=== PATIENT | female | born 1975 | race Two or more races ===

== ENCOUNTER 2017-06-14 10:39 | Outpatient (CLI) | payer OTHER ==
[~2017-06-14 10:39] MED LIST: ASA81 MG; CELEXA10 MG; CLONAZEPAM0.5 MG; COZAAR100 MG; FLONASE16 GM NASAL; GILTUSS TR TAB1 EACH PO; LASIX20 MG; METFORMIN HCL500 MG; MINITRAN1 EAC1; SINGULAIR10 MG; TOPAMAX15 MG; TOPROL XL200 MG; VOLTAREN100 GM TP; XARELTO20 MG; ZITHROMAX500 MG PO
== END 2017-06-14 15:24 | disposition home or self-care (01) ==
LOC: SONOGRAMA 10:39
DX: N20.0 Calculus of kidney (principal); N28.1 Cyst of kidney, acquired

== ENCOUNTER 2017-06-14 10:43 | Outpatient (CLI) | payer OTHER | END 2017-06-14 15:24 | disposition home or self-care (01) | LOC: RAD 10:43 | DX: I25.10 Atherosclerotic heart disease of native coronary artery without angina pectoris (principal); I26.99 Other pulmonary embolism without acute cor pulmonale ==

== ENCOUNTER 2017-08-23 10:51 | Outpatient (CLI) | payer OTHER | END 2017-08-23 10:55 | disposition home or self-care (01) | LOC: MAMO-SONO 10:51 | DX: Z12.31 Encounter for screening mammogram for malignant neoplasm of breast (principal); Z87.898 Personal history of other specified conditions; Z12.39 Encounter for other screening for malignant neoplasm of breast; R10.2 Pelvic and perineal pain ==

== ENCOUNTER 2017-10-17 11:35 | Outpatient (CLI) | payer OTHER | END 2017-10-17 16:13 | disposition home or self-care (01) | LOC: TOM 11:35 | DX: J84.112 Idiopathic pulmonary fibrosis (principal) ==

== ENCOUNTER 2018-08-16 09:17 | Outpatient (CLI) | payer OTHER | END 2018-08-16 12:49 | disposition home or self-care (01) | LOC: RX STUDY 09:17 | DX: R13.19 Other dysphagia (principal); R93.3 Abnormal findings on diagnostic imaging of other parts of digestive tract ==

== ENCOUNTER 2018-11-14 10:28 | Outpatient (CLI) | payer OTHER | END 2018-11-14 15:00 | disposition home or self-care (01) | LOC: SONOGRAMA 10:28 → RAD 10:28 → SONOGRAMA 15:00 | DX: K57.00 Diverticulitis of small intestine with perforation and abscess without bleeding (principal) ==

== ENCOUNTER 2019-02-19 09:36 | Outpatient (CLI) | payer OTHER | END 2019-02-19 09:38 | disposition home or self-care (01) | LOC: TOM 09:36 | DX: K40.90 Unilateral inguinal hernia, without obstruction or gangrene, not specified as recurrent (principal) ==

== ENCOUNTER 2019-03-28 10:30 | Outpatient (CLI) | payer OTHER | END 2019-03-28 10:37 | disposition home or self-care (01) | LOC: RAD 10:30 | DX: M25.562 Pain in left knee (principal); M25.561 Pain in right knee ==

== ENCOUNTER 2019-07-11 13:05 | Outpatient (CLI) | payer OTHER | END 2019-07-11 13:07 | disposition home or self-care (01) | LOC: SONOGRAMA 13:05 | DX: M25.551 Pain in right hip (principal) ==

== ENCOUNTER 2019-10-04 10:02 | Outpatient (CLI) | payer OTHER | END 2019-10-04 10:09 | disposition home or self-care (01) | LOC: RAD 10:02 | DX: J40 Bronchitis, not specified as acute or chronic (principal); I50.22 Chronic systolic (congestive) heart failure ==

== ENCOUNTER 2020-03-19 09:13 | Outpatient (CLI) | payer OTHER | END 2020-03-19 09:20 | disposition home or self-care (01) | LOC: SONOGRAMA 09:13 | PROVIDERS: ATTEND Physical Medicine & Rehabilitation | DX: M25.512 Pain in left shoulder (principal) ==

== ENCOUNTER → 2020-04-18 | Outpatient (CLI) | payer OTHER ==
[~2020-04-18] MED LIST changes: +ALDACTONE25 MG PO; +AMITIZA8 MCG PO; +AMITRIPTYLINE H10 MG PO; +ATACAND32 MG PO; +DICY20TA PO; +ISOSORBIDE MONO30 MG; +LIPITOR40 M1 PO; +SYNTHROID50 MCG PO; +XARELTO20 MG PO
== END | disposition home or self-care (01) ==
LOC: RAD 10:34
PROVIDERS: ATTEND Orthopaedic Surgery
DX: Z76.89 Persons encountering health services in other specified circumstances (principal)

== ENCOUNTER → 2020-05-14 11:49 | Outpatient (CLI) | payer OTHER ==
[~2020-05-14 11:49] MED LIST changes: +ACETAMINOPHEN-1 EAC2 PO
== END | disposition home or self-care (01) ==
LOC: LAB 11:49
PROVIDERS: ATTEND Orthopaedic Surgery
DX: Z03.818 Encounter for observation for suspected exposure to other biological agents ruled out (principal)

== ENCOUNTER 2020-05-16 08:38 | Day surgery (SDC) | payer OTHER ==
[~2020-05-16 08:38] MED LIST changes: -ACETAMINOPHEN-1 EAC2 PO
[2020-05-21] MEDS ORDERED: ACETAMINOPHEN-1 EAC2 PO (10:26)
== END 2020-05-16 16:00 | disposition home or self-care (01) ==
LOC: CIR.AMB 08:38
PROVIDERS: ATTEND Orthopaedic Surgery
DX: M75.122 Complete rotator cuff tear or rupture of left shoulder, not specified as traumatic (principal); M75.22 Bicipital tendinitis, left shoulder; Z20.828 Contact with and (suspected) exposure to other viral communicable diseases

== ENCOUNTER 2020-05-16 09:01 | Outpatient (CLI) | payer OTHER ==
[2020-05-21] MEDS ORDERED: ACETAMINOPHEN-1 EAC2 PO (10:26)
[2020-06-16] MEDS ORDERED: NEURONTIN300 MG PO (10:44)
== END 2020-05-16 09:20 | disposition home or self-care (01) ==
LOC: NUCLEAR 09:01
PROVIDERS: ATTEND Orthopaedic Surgery
DX: M81.0 Age-related osteoporosis without current pathological fracture (principal)

== ENCOUNTER 2020-07-28 11:46 | Outpatient (CLI) | payer OTHER ==
[~2020-07-28 11:46] MED LIST changes: +ACETAMINOPHEN-1 EAC2 PO; +NEURONTIN300 MG PO
== END 2020-07-28 11:53 | disposition home or self-care (01) ==
LOC: RAD 11:46
PROVIDERS: ATTEND Orthopaedic Surgery
DX: M20.11 Hallux valgus (acquired), right foot (principal); M79.671 Pain in right foot

== ENCOUNTER 2020-07-31 09:23 | Outpatient (CLI) | payer OTHER | END 2020-07-31 09:32 | disposition home or self-care (01) | LOC: LAB 09:23 | PROVIDERS: ATTEND Orthopaedic Surgery | DX: E83.42 Hypomagnesemia (principal); E56.1 Deficiency of vitamin K; M85.89 Other specified disorders of bone density and structure, multiple sites ==

== ENCOUNTER 2020-11-25 11:43 | Outpatient (CLI) | payer OTHER | END 2020-11-25 11:48 | disposition home or self-care (01) | LOC: RAD 11:43 | PROVIDERS: ATTEND Orthopaedic Surgery | DX: M25.551 Pain in right hip (principal) ==

== ENCOUNTER 2021-01-28 11:43 | Outpatient (CLI) | payer OTHER | END 2021-01-28 11:48 | disposition home or self-care (01) | LOC: SONOGRAMA 11:43 | DX: K40.90 Unilateral inguinal hernia, without obstruction or gangrene, not specified as recurrent (principal) ==

== ENCOUNTER 2021-02-10 11:08 | Outpatient (CLI) | payer OTHER | END 2021-02-10 11:16 | disposition home or self-care (01) | LOC: RAD 11:08 | PROVIDERS: ATTEND Orthopaedic Surgery | DX: M25.562 Pain in left knee (principal); M79.671 Pain in right foot ==

== ENCOUNTER 2021-06-11 10:34 | Outpatient (CLI) | payer OTHER | END 2021-06-11 10:40 | disposition home or self-care (01) | LOC: SONOGRAMA 10:34 | PROVIDERS: ATTEND Internal Medicine Endocrinology, Diabetes & Metabolism | DX: E04.2 Nontoxic multinodular goiter (principal); E04.8 Other specified nontoxic goiter ==

== ENCOUNTER 2021-10-08 11:22 | Outpatient (CLI) | payer OTHER | END 2021-10-08 11:29 | disposition home or self-care (01) | LOC: RAD 11:22 | PROVIDERS: ATTEND Orthopaedic Surgery | DX: M79.671 Pain in right foot (principal) ==

== ENCOUNTER 2021-10-20 12:03 | Outpatient (CLI) | payer OTHER | END 2021-10-20 12:04 | disposition home or self-care (01) | LOC: RAD 12:03 | PROVIDERS: ATTEND Internal Medicine | DX: R05.9 Cough, unspecified (principal) ==

== ENCOUNTER 2021-12-10 10:57 | Outpatient (CLI) | payer OTHER | END 2021-12-10 11:20 | disposition home or self-care (01) | LOC: RAD 10:57 | PROVIDERS: ATTEND Student in an Organized Health Care Education/Training Program | DX: M25.561 Pain in right knee (principal) ==

== ENCOUNTER 2022-02-26 08:44 | Outpatient (CLI) | payer OTHER | END 2022-02-26 08:51 | disposition home or self-care (01) | LOC: TOM 08:44 | PROVIDERS: ATTEND Internal Medicine Gastroenterology | DX: K40.90 Unilateral inguinal hernia, without obstruction or gangrene, not specified as recurrent (principal) | CPT/HCPCS: 74177; Q9965 ==

== ENCOUNTER → 2022-05-11 | Emergency (ER) | payer OTHER ==
[~2022-05-11] VITALS: Ht 152.4 cm; Wt 103.4 kg
[~2022-05-11] MED LIST changes: +FLONASE ALLERG9.9 ML NASAL; +MUCINEX DM ER1 EAC1 PO
== END | disposition home or self-care (01) ==
LOC: ER 18:24
DX: U07.1 COVID-19 (principal); E11.9 Type 2 diabetes mellitus without complications; Z95.0 Presence of cardiac pacemaker

== ENCOUNTER 2022-06-15 11:00 | Outpatient (CLI) | payer OTHER | END 2022-06-15 11:06 | disposition home or self-care (01) | LOC: RAD 11:00 | DX: M79.671 Pain in right foot (principal) ==

== ENCOUNTER 2022-06-22 10:43 | Outpatient (CLI) | payer OTHER | END 2022-06-22 10:50 | disposition home or self-care (01) | LOC: RAD 10:43 | PROVIDERS: ATTEND Orthopaedic Surgery | DX: M79.672 Pain in left foot (principal); M25.562 Pain in left knee ==

== ENCOUNTER → 2022-08-20 | Outpatient (CLI) | payer OTHER | END | disposition home or self-care (01) | LOC: RAD 11:07 | PROVIDERS: ATTEND Physical Medicine & Rehabilitation | DX: S99.821A Other specified injuries of right foot, initial encounter (principal); W19.XXXA Unspecified fall, initial encounter ==

== ENCOUNTER 2022-12-14 07:52 | Outpatient (CLI) | payer OTHER ==
[~2022-12-14 07:52] MED LIST changes: +METHOCARBAMOL750 MG PO; +VOLTAREN ARTHRI20 GM TOP
== END 2022-12-14 08:08 | disposition home or self-care (01) ==
LOC: RX STUDY 07:52
PROVIDERS: ATTEND Internal Medicine Cardiovascular Disease
DX: M34.81 Systemic sclerosis with lung involvement (principal); J45.40 Moderate persistent asthma, uncomplicated; M33.10 Other dermatomyositis, organ involvement unspecified

== ENCOUNTER 2023-06-23 09:31 | Outpatient (CLI) | payer OTHER | END 2023-06-23 09:38 | disposition home or self-care (01) | LOC: TOM 09:31 | DX: J84.9 Interstitial pulmonary disease, unspecified (principal); M33.90 Dermatopolymyositis, unspecified, organ involvement unspecified ==

== ENCOUNTER 2023-08-17 07:55 | Outpatient (CLI) | payer OTHER | END 2023-08-17 08:01 | disposition home or self-care (01) | LOC: RAD 07:55 | PROVIDERS: ATTEND Student in an Organized Health Care Education/Training Program | DX: J44.9 Chronic obstructive pulmonary disease, unspecified (principal); J01.20 Acute ethmoidal sinusitis, unspecified; Z88.1 Allergy status to other antibiotic agents ==

== ENCOUNTER 2024-02-21 09:22 | Outpatient (CLI) | payer OTHER | END 2024-02-21 09:51 | disposition home or self-care (01) | LOC: RAD 09:22 | PROVIDERS: ATTEND Physical Medicine & Rehabilitation | DX: M25.511 Pain in right shoulder (principal); M54.50 Low back pain, unspecified ==

== ENCOUNTER → 2024-02-29 09:30 | Outpatient (CLI) | payer OTHER | END | disposition home or self-care (01) | LOC: NUCLEAR 09:30 | PROVIDERS: ATTEND Student in an Organized Health Care Education/Training Program | DX: I87.2 Venous insufficiency (chronic) (peripheral) (principal) ==

== ENCOUNTER 2024-03-21 12:54 | Outpatient (CLI) | payer OTHER | END 2024-03-21 14:58 | disposition home or self-care (01) | LOC: MAMO-SONO 12:54 | PROVIDERS: ATTEND Surgery | DX: E04.8 Other specified nontoxic goiter (principal); N60.11 Diffuse cystic mastopathy of right breast; N60.12 Diffuse cystic mastopathy of left breast; Z12.31 Encounter for screening mammogram for malignant neoplasm of breast ==

== ENCOUNTER 2024-04-12 11:33 | Outpatient (CLI) | payer OTHER | END 2024-04-12 11:49 | disposition home or self-care (01) | LOC: SONOGRAMA 11:33 | PROVIDERS: ATTEND Orthopaedic Surgery | DX: R10.13 Epigastric pain (principal); M25.561 Pain in right knee; M54.50 Low back pain, unspecified ==

== ENCOUNTER 2024-04-18 11:49 | Outpatient (CLI) | payer OTHER | END 2024-04-18 11:50 | disposition home or self-care (01) | LOC: NUCLEAR 11:49 | PROVIDERS: ATTEND Orthopaedic Surgery | DX: M81.0 Age-related osteoporosis without current pathological fracture (principal) ==

== ENCOUNTER 2024-05-21 11:37 | Emergency (ER) | payer OTHER ==
[~2024-05-21] VITALS: Ht 175.3 cm; Wt 86.2 kg
[2024-05-21 15:42] LABS: HEMATOCRIT 44.1 % (36.0-45.00); HEMOGLOBIN 14.3 g/dL (12.0-15.00); MEAN CELL VOLUME 91.9 fL (80.00-100.00); MEAN CORPUSCULAR HEMOGLOBIN 29.8 pg (27.00-32.0); MEAN CORPUSCULAR HGB CONC 32.4 g/dl (32.0-36.0); PLATELET COUNT 233 K/uL (150-450); RED CELL DISTRIBUTION WIDTH 15.3 % (11.5-14.5)
[2024-05-21] MEDS ORDERED: GILTUSS COUGH-118 M1 PO (20:31)
== END 2024-05-21 20:44 | disposition home or self-care (01) ==
LOC: ER 11:39
PROVIDERS: General Practice
DX: R53.81 Other malaise (principal); J06.9 Acute upper respiratory infection, unspecified; Z20.822 Contact with and (suspected) exposure to COVID-19; Z88.1 Allergy status to other antibiotic agents

== ENCOUNTER → 2024-08-20 | Outpatient (CLI) | payer OTHER ==
[~2024-08-20] MED LIST changes: +GILTUSS COUGH-118 M1 PO
== END | disposition home or self-care (01) ==
LOC: SONOGRAMA 10:25
PROVIDERS: ATTEND Student in an Organized Health Care Education/Training Program
DX: M75.101 Unspecified rotator cuff tear or rupture of right shoulder, not specified as traumatic (principal)

== ENCOUNTER 2024-09-03 09:06 | Outpatient (CLI) | payer OTHER | END 2024-09-03 09:08 | disposition home or self-care (01) | LOC: TOM 09:06 | DX: J84.10 Pulmonary fibrosis, unspecified (principal) ==

== ENCOUNTER 2024-11-02 08:55 | Outpatient (CLI) | payer OTHER | END 2024-11-02 09:01 | disposition home or self-care (01) | LOC: TOM 08:55 | PROVIDERS: ATTEND Psychiatry & Neurology Pain Medicine | DX: G43.909 Migraine, unspecified, not intractable, without status migrainosus (principal); G43.419 Hemiplegic migraine, intractable, without status migrainosus; H81.392 Other peripheral vertigo, left ear; R26.9 Unspecified abnormalities of gait and mobility | CPT/HCPCS: 70470; Q9965 ==

== ENCOUNTER 2024-11-12 10:29 | Emergency (ER) | payer OTHER ==
[~2024-11-12] VITALS: Ht 175.3 cm; Wt 79.8 kg
[2024-11-12] MEDS ORDERED: JARDIANCE25 MG (11:16)
[2024-11-12] MEDS ORDERED: 0.9 % SODIUM CHLORIDE 1,000 ML IV STA (11:45)
[2024-11-12] MEDS ORDERED: FAMOtidine 10 MG/ML (4ML VIAL) IV PUSH STA (11:46)
[2024-11-12] MEDS ORDERED: ONDANSETRON HCL 2 MG/ML VIAL IV STA (11:46)
[2024-11-12] MEDS ORDERED: DIPHENOXYLATE HCL/ATROPINE 1 UDTAB TABLET PO STA (11:46)
[2024-11-12] MEDS ORDERED: ONDANSETRON HCL 2 MG/ML VIAL ONE (11:57)
[2024-11-12] MEDS ORDERED: FAMOTIDINE/PF 20 MG/2 ML VIAL ONE (11:57)
[2024-11-12 13:45] LABS: CALCIUM 9.6 mg/dL (8.5-10.1); CREATININE SERUM 0.82 mg/dL (0.55-1.02); GFR 73.79; POTASSIUM 3.7 mEq/L (3.5-5.1)
[2024-11-12 14:08] LABS: COVID-19 AG NEGATIVE (NEGATIVE); INFLUENZA A AG NEGATIVE (NEGATIVE); INFLUENZA B AG NEGATIVE (NEGATIVE)
[2024-11-12 15:11] LABS: BASO % 0.3 % (0.1-1.2); EOS # 0.05 (0.04-0.54); EOS % 0.7 % (0.7-7.0); HEMATOCRIT 46.2 % (34.1-44.9); HEMOGLOBIN 14.6 g/dL (11.2-15.7); LYMPH % 17.4 % (19.3-53.1); MEAN CORPUSCULAR HEMOGLOBIN 28.1 pg (25.6-32.2); MONO # 0.56 (0.24-0.82); MONO % 8.1 % (4.7-12.5); NEUT # 5.02 (1.56-6.13); NEUT % 73.1 % (34.0-71.1); PLATELET COUNT 243 K/uL (163-369); RED CELL DISTRIBUTION WIDTH 14.9 % (11.6-14.4)
== END 2024-11-12 17:36 | disposition home or self-care (01) ==
LOC: ER 10:29
DX: B34.9 Viral infection, unspecified (principal); E11.9 Type 2 diabetes mellitus without complications; Z79.84 Long term (current) use of oral hypoglycemic drugs; Z20.822 Contact with and (suspected) exposure to COVID-19; Z88.1 Allergy status to other antibiotic agents
CPT/HCPCS: 36415; 96365; 96366; 99282; J2405; J3490; J7030